=== PATIENT | male | born 1995 | race Caucasian/White ===

== ENCOUNTER 2018-02-08 19:59 | Emergency (ER) | payer OTHER ==
[~2018-02-08] VITALS: Ht 165.1 cm; Wt 72.6 kg
[~2018-02-08 19:59] MED LIST: IBUP800 PO; MUPI2TO TOP; Naprosyn500 MG PO; Norco 5-325 Ta1 EACH PO; PENVK500 PO; TRIA80TC TOP; Veetids 500500 MG PO
== END 2018-02-08 21:23 | disposition home or self-care (01) ==
LOC: ER 19:59
DX: S51.811A Laceration without foreign body of right forearm, initial encounter (principal); F17.210 Nicotine dependence, cigarettes, uncomplicated; Z91.030 Bee allergy status; W26.8XXA Contact with other sharp object(s), not elsewhere classified, initial encounter
CPT/HCPCS: 12001; 99283

== ENCOUNTER 2018-12-04 21:50 | Emergency (ER) | payer OTHER ==
[~2018-12-04] VITALS: Ht 165.1 cm; Wt 81.7 kg
[2018-12-04] MEDS ORDERED: CEPH500 PO (23:52)
[2018-12-04] MEDS ORDERED: Bactrim Ds Tab1 EACH PO (23:52)
== END 2018-12-05 00:10 | disposition home or self-care (01) ==
LOC: ER 21:50
DX: L03.116 Cellulitis of left lower limb (principal); F17.210 Nicotine dependence, cigarettes, uncomplicated; Z91.030 Bee allergy status; Z91.038 Other insect allergy status; Z79.2 Long term (current) use of antibiotics; Z79.899 Other long term (current) drug therapy
CPT/HCPCS: 99283

== ENCOUNTER 2019-05-30 23:05 | Emergency (ER) | payer OTHER ==
[~2019-05-30] VITALS: Ht 165.1 cm; Wt 72.6 kg
[~2019-05-30 23:05] MED LIST changes: +Bactrim Ds Tab1 EACH PO; +CEPH500 PO
[2019-05-31] MEDS ORDERED: Percocet 5-3251 EACH PO (01:04)
[2019-05-31] MEDS ORDERED: IBUP800 PO (01:04)
[2019-05-31] MEDS ORDERED: CRUTCH2 XX (01:05)
== END 2019-05-31 01:47 | disposition home or self-care (01) ==
LOC: ER 23:05
DX: S82.62XA Displaced fracture of lateral malleolus of left fibula, initial encounter for closed fracture (principal); S93.05XA Dislocation of left ankle joint, initial encounter; W09.8XXA Fall on or from other playground equipment, initial encounter; Z91.030 Bee allergy status; F17.210 Nicotine dependence, cigarettes, uncomplicated
CPT/HCPCS: 27788; 73600; 73610; 96374-59; 99152; 99284-25; A9270; J1170; J2704; J7030

== ENCOUNTER 2019-06-10 13:24 | Day surgery (SDC) | payer OTHER ==
[~2019-06-10] VITALS: Ht 165.1 cm; Wt 74.3 kg
[~2019-06-10 13:24] MED LIST changes: +CRUTCH2 XX; +Percocet 5-3251 EACH PO
--- NOTE | 2019-06-10 14:29 | NUR ---
06/10/19 1429 Vielka Nettles LEFT FOOT REMAINS SWOLLEN AND BRUISED. THE MEDIAL ANKLE WITH OPEN BLISTER,FOOT VERY DIRTY. SCRUB BRUSH AND ALCOHOL USED TO SCRUB FOOT/ TOES PER SURGEON REQUEST.
--- NOTE | 2019-06-10 15:27 | NUR ---
06/10/19 1527 Karlie Arroyo assumed care of pt from [facility].[place]
--- NOTE | 2019-06-10 16:57 | NUR ---
06/10/19 8927 Karlie Arroyo VOIDED QS PRIOR TO DC HOME. OVI FLUIDS WELL AND STATED PAIN UNDER CONTROL UPON DC
== END 2019-06-10 16:56 | disposition home or self-care (01) ==
LOC: ORSCSDS 13:24
PROVIDERS: Podiatrist Foot & Ankle Surgery
PROC: 0QSH04Z Reposition Left Tibia with Internal Fixation Device, Open Approach (ICD-10-PCS; principal; 2019-06-10 14:30)
PROC: 0MQR0ZZ Repair Left Ankle Bursa and Ligament, Open Approach (ICD-10-PCS; principal; 2019-06-10 14:30)
PROC: 0QSK04Z Reposition Left Fibula with Internal Fixation Device, Open Approach (ICD-10-PCS; principal; 2019-06-10 14:30)
DX: S82.842A Displaced bimalleolar fracture of left lower leg, initial encounter for closed fracture (principal); S93.422A Sprain of deltoid ligament of left ankle, initial encounter; F17.210 Nicotine dependence, cigarettes, uncomplicated
CPT/HCPCS: C1713; J0690; J1100; J1885; J2250; J2405; J2704; J3010; J7120